=== PATIENT | male | born 1995 | race Caucasian/White ===

== ENCOUNTER 2020-08-09 15:10 | Emergency (ER) | payer OTHER, SELFPAY ==
--- NOTE | ~2020-08-09 | XR_ITS ---
EXAMINATION: XR knee LT min 4V DATE: 08/09/2020 15:47 INDICATION: Left knee pain. TECHNIQUE: 5 views of left knee were obtained. COMPARISON: None. FINDINGS: Bone alignment is normal. No fracture. There is mild osteoarthritis of medial and patellofe moral compartments. No knee joint effusion. IMPRESSION: 1. Mild left knee osteoarthritis. Reviewed, dictated and finalized at location A.
[2020-08-09 15:19] VITALS: BP 145/85; PULSE 81; RESP 14; TEMP 36.9; O2SAT 100
--- NOTE | 2020-08-09 16:02 | ED.LOWEXIN ---
HPI - Extremity Injury (Lower) General Chief Complaint: Extremity Injury, Lower Stated Complaint: left knee pain/trouble walking Time Seen by Provider: 08/09/20 15:46 Source: patient and RN notes reviewed Mode of arrival: ambulatory Limitations: no limitations History of Present Illness HPI Narrative: Patient presents today with a history of intermittent shooting and aching pains in his left knee x2 years s/p left patellar fracture. Occasionally this pain radiates to his hip. He has been taking ibuprofen and naproxen. He did not follow-up with orthopedics after his patella healed. He is recently seen his PCP, who he believes is not doing much to help with his pain. He sought treatment today wondering if his patella healed improperly and would like an x-ray. Currently rates pain 06/24. 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 MD complaint: knee injury Related Data Home Medications Medication Instructions Recorded Confirmed bupropion HCl 150 mg PO QAM 08/09/20 08/09/20 lamotrigine 100 mg PO BID 08/09/20 08/09/20 risperidone 2 mg PO DAILY 08/09/20 08/09/20 trazodone 300 mg PO HS 08/09/20 08/09/20 Allergies Allergy/AdvReac Type Severity Reaction Status Date / Time No Known Allergies Allergy Verified 08/09/20 15:41 Review of Systems Review of Systems: Narrative: CONSTITUTIONAL: Denies body aches, fever, chills, or sweats. EYES: Denies visual changes, redness, or discharge. ENT: Denies rhinorrhea, congestion, sore throat, or otalgia. CARDIOVASCULAR: Denies chest pain, palpitations, or edema. RESPIRATORY: Denies cough or dyspnea. GASTROINTESTINAL: Denies abdominal pain, nausea, vomiting, or diarrhea. GENITOURINARY: Denies dysuria or hematuria. SKIN: Denies rash, itching, or wounds. MUSCULOSKELETAL: Denies back pain, or myalgia. + Left knee pain NEUROLOGIC: Denies headache, numbness, tingling, or weakness. PSYCH: Denies depression or anxiety. [facility] Past Medical History Medical History (Updated 08/10/20 @ 00:00 by Eze Lopez) Anxiety Social History Social History (Updated 10/17/19 @ 15:42 by Cherrie Nice NP) Smoking packs per day: 0.5 Smoking cigarettes per day: 10.0 Years smoked: 9 Smoking pack-years: 4.50 Smoking status: Current every day smoker Gender identity (if verbalized by the patient): Male Comments At time of signature, I have reviewed and agree with nursing past medical, surgical, social and family history unless otherwise noted. Please see nursing chart for further information. There is no relevant family history pertinent to the presenting complaint Exam Narrative: Exam Narrative: GENERAL: Well-appearing, well-nourished, and in no acute distress. HEAD: Normocephalic, atraumatic. EYES: EOMI. No redness or drainage. Conjunctivae normal. ENT: Mucous membranes pink and moist. NECK: Normal AROM. CHEST: No respiratory distress. EXTREMITIES: Left knee: No edema, ecchymosis, erythema, or color change. No effusion noted. Tenderness to the lateral joint line. No abnormal movement of the tenderness. No bony tenderness of the patella. No tenderness of the patellar tendon. Full range of motion of the knee. Distal sensation intact. Capillary refill normal. Pedal pulse normal. SKIN: Warm, dry, no rash. Capillary refill normal. Normal skin turgor. NEURO: No focal deficits. Alert and oriented x3. Gait steady. PSYCH: Normal affect. No signs of depression or anxiety. Course Course Emergency Course: After discussing xray results and plan for ortho follow up with patient he requested pain medication prescription. Discussed with patient that I don't typically prescribe narcotic pain medication for patients with chronic pain and that he needs to take OTC medications and see he PCP or ortho for further treatment. He became angry at this point, states, I don't want narcotics. I ain't a druggy , then proceeds to yell and curse at me for
== END 2020-08-09 16:09 | disposition home or self-care (01) ==
PROVIDERS: Emergency Provider Nurse Practitioner
DX: G89.29 Other chronic pain (principal); M25.562 Pain in left knee; F17.210 Nicotine dependence, cigarettes, uncomplicated; F41.9 Anxiety disorder, unspecified
CPT/HCPCS: 73564; 99212; G0463

== ENCOUNTER 2021-08-27 15:46 | Emergency (ER) | payer OTHER, SELFPAY ==
[2021-08-27 15:49] VITALS: BP 154/114; PULSE 100; RESP 24; TEMP 36.7; O2SAT 98
--- NOTE | 2021-08-27 15:56 | ED.DENTAL ---
HPI - Dental/Oral General Stated complaint: tooth pain History of Present Illness HPI Narrative: Patient is a 25-year-old male who presents complaining of right lower dental pain. Patient has moaning and answering few questions at this time. Patient is stating that he must have pain control or he will leave AMA. Patient reports sudden onset of right lower dental pain x2 hours. He reports taking 800 mg of ibuprofen prior to arrival. He reports sensitivity to cold and heat to right lower tooth. He denies all other complaints at this time. MD Complaint: tooth pain Related Data Home Medications Medication Instructions Recorded Confirmed bupropion HCl 150 mg PO QAM 08/09/20 08/27/21 lamotrigine 100 mg PO BID 08/09/20 08/27/21 risperidone 2 mg PO DAILY 08/09/20 08/27/21 buprenorphine [Sublocade] See Rx Instructions .ROUTE .COMPLEX 08/27/21 08/27/21 propranolol 08/27/21 08/27/21 trazodone 100 mg PO DAILY 08/27/21 08/27/21 Allergies Allergy/AdvReac Type Severity Reaction Status Date / Time No Known Allergies Allergy Verified 08/27/21 15:58 Review of Systems Review of Systems: CONSTITUTIONAL: Denies fever, chills, or sweats. EYES: Denies visual changes, redness, or discharge. ENT: Denies rhinorrhea, congestion, sore throat, or otalgia. Right lower dental pain CARDIOVASCULAR: Denies chest pain, palpitations, or edema. RESPIRATORY: Denies cough or dyspnea. GASTROINTESTINAL: Denies abdominal pain, nausea, vomiting, or diarrhea. GENITOURINARY: Denies dysuria or hematuria. SKIN: Denies rash or itching. MUSCULOSKELETAL: Denies back pain, joint pain, or myalgia. NEUROLOGIC: Denies headache, numbness, dizziness, or weakness. PSYCHIATRIC: Denies anxiety or depression. [facility] Past Medical History Medical History Anxiety Social History Social History Smoking packs per day: 0.5 Smoking cigarettes per day: 10.0 Years smoked: 9 Smoking pack-years: 4.50 Smoking status: Current every day smoker Gender identity (if verbalized by the patient): Male Comments At the time of signature, I have reviewed and agree with nursing past medical, surgical, social, and family history unless otherwise noted. Please see nursing chart for further information. There is no relevant family history pertinent to the presenting complaint. Exam Narrative: GENERAL: Well-appearing, well-nourished, and in no acute distress. HEAD: Normocephalic, atraumatic. EYES: EOMI. No redness or drainage. Conjunctiva are normal. ENT: Mucous membranes pink and moist. Multiple dental caries. CHEST: No respiratory distress. Clear to auscultation. HEART: Regular rate and rhythm. EXTREMITIES: Normal range of motion. No edema. SKIN: Warm, dry, no rash. NEURO: No focal deficits. Alert and oriented x3. Gait steady. PSYCH: Normal affect. No signs of depression or anxiety. MDM - Dental/Oral MDM Narrative Medical decision making narrative: Patient requesting pain management. Per chart patient has a history of narcotic abuse. Discussed with patient that antibiotics were the most effective in treating but dental pain and and he may take Tylenol or ibuprofen as needed. Differential Diagnosis Differential diagnosis: Likely dental caries, toothache, dental abscess and fracture of tooth Critical Care Time Critical Care Time Critical Care Time: No Discharge Plan Discharge Clinical Impression: Pain, dental Patient Disposition: Home, Self-Care Condition: Stable Instructions: Antibiotic Form Additional Instructions: Take antibiotics as directed. You may take Tylenol or ibuprofen for pain. Follow-up with your dentist on Sunday for further evaluation. Prescriptions: New amoxicillin-pot clavulanate 875-125 mg tablet 1 tablet PO Q12H 10 Days Qty: 20 RF: 0 ibuprofen 800 mg tablet 800 mg PO TID PRN (Reason: pain) Qty: 20 RF: 0
== END 2021-08-27 16:00 | disposition home or self-care (01) ==
PROVIDERS: Emergency Provider Nurse Practitioner
DX: K08.89 Other specified disorders of teeth and supporting structures (principal); F17.210 Nicotine dependence, cigarettes, uncomplicated; F41.9 Anxiety disorder, unspecified
CPT/HCPCS: 99213; G0463

== ENCOUNTER 2022-03-08 13:29 | Emergency (ER) | payer OTHER, SELFPAY ==
[2022-03-08 13:40] VITALS: BP 133/85; PULSE 74; RESP 16; TEMP 36.4; O2SAT 100
--- NOTE | 2022-03-08 14:34 | ED.DENTAL ---
HPI - Dental/Oral General Chief complaint: Dental/Oral Stated complaint: toothache Time Seen by Provider: 03/08/22 14:13 Source: patient Mode of arrival: ambulatory Limitations: no limitations History of Present Illness HPI Narrative: 26-year-old otherwise healthy here with complaints of dental pain for past 2 days. Since this morning. Pain has been quite intense. He states that his glands are swollen. Denies any fever or chills. He is scheduled to see a dentist in 2 days Location: Tooth # (29) Onset (ago): day(s) (2) Duration: constant Severity: moderate Relieving factors: nothing Exacerbating factors: nothing Context: history of dental caries Treatment prior to arrival: none Related Data Home Medications Medication Instructions Recorded Confirmed trazodone 100 mg tablet 100 mg PO DAILY 08/27/21 08/27/21 Allergies Allergy/AdvReac Type Severity Reaction Status Date / Time No Known Allergies Allergy Verified 03/08/22 13:37 Review of Systems Review of Systems: All systems reviewed & are unremarkable except as noted in HPI and below Constitutional: Constitutional: Reports no additional constitutional complaints Eyes: Eyes: Reports no additional eye complaints ENT: Reports as per HPI Cardiovascular: Cardiovascular: Reports no additional cardiovascular complaints Respiratory: Respiratory: Reports no additional respiratory complaints Gastrointestinal: Gastrointestinal: Reports no additional gastrointestinal complaints Musculoskeletal: Musculoskeletal: Reports no additional musculoskeletal complaints Integumentary/Breasts: Skin/Breast: Reports system reviewed and no additional complaints, except as docu Neurologic: Reports system reviewed and no additional complaints, except as documented PMFSH Past Medical History Medical History Anxiety Social History Social History Smoking packs per day: 0.5 Smoking cigarettes per day: 10.0 Years smoked: 9 Smoking pack-years: 4.50 Smoking status: Current every day smoker Gender identity (if verbalized by the patient): Male Exam Narrative: GENERAL: Well-appearing, well-nourished, and in no acute distress. HEAD: Normocephalic, atraumatic. EYES: PERRLA and EOMI. ENT: Nares clear, dental caries #29 mucous membranes moist. NECK: Supple. CHEST: Clear to auscultation. No respiratory distress. HEART: Regular rate and rhythm. No murmur heard. Normal peripheral pulses. EXTREMITIES: Normal range of motion. No edema. SKIN: Warm, dry, no rash. NEURO: No focal deficits. Alert and oriented x3. PSYCH: Normal mood and affect. Course Course Emergency Course: Inform patient to take antibiotic as prescribed, follow-up with dentist as scheduled Vital Signs Vital signs: Vital Signs Temperature 36.4 C L 03/08/22 13:40 Pulse Rate 74 03/08/22 13:40 Respiratory Rate 16 03/08/22 13:40 Blood Pressure 133/85 03/08/22 13:40 Pulse Oximetry 100 03/08/22 13:40 Oxygen Delivery Room Air 03/08/22 13:40 Temperature 36.4 C L 03/08/22 13:40 Pulse Rate 74 03/08/22 13:40 Respiratory Rate 16 03/08/22 13:40 Blood Pressure 133/85 03/08/22 13:40 Pulse Oximetry 100 03/08/22 13:40 Oxygen Delivery Room Air 03/08/22 13:40 Discharge Plan Discharge Clinical Impression: Dental caries Patient Disposition: Home, Self-Care Condition: Stable Instructions: Antibiotic Form, Toothache (ED) Additional Instructions: Take antibiotic as prescribed you are on Suboxone cannot give any narcotic. Can take Tylenol or ibuprofen for pain follow-up with your dentist Prescriptions: New amoxicillin 875 mg tablet 875 mg PO Q12H Qty: 20 0RF No Action trazodone 100 mg tablet 100 mg PO DAILY Follow-up/Referrals: PHYSICIAN NOT ON STAFF,NONSTAFF [Primary Care Provider] - Stand Alone Forms: Work/School Release I
== END 2022-03-08 14:54 | disposition home or self-care (01) ==
PROVIDERS: Emergency Provider Family Medicine
DX: K02.9 Dental caries, unspecified (principal); F41.9 Anxiety disorder, unspecified; F17.210 Nicotine dependence, cigarettes, uncomplicated
CPT/HCPCS: 99283

== ENCOUNTER 2022-12-21 16:45 | Emergency (ER) | payer OTHER, SELFPAY ==
--- NOTE | 2022-12-21 16:48 | ED.DENTAL ---
HPI - Dental/Oral General Chief complaint: Dental/Oral Stated complaint: Dental Pain Time Seen by Provider: 12/21/22 17:00 Source: patient Mode of arrival: ambulatory Limitations: no limitations History of Present Illness HPI Narrative: Levar is a 27-year-old male patient presenting to clinic today with complaints of dental pain x4 days. He reports he broke part of his right posterior molar and is having a lot of pain. Has been taking ibuprofen and Orajel for the pain in is not helping. Rates his pain 07/24 currently Related Data Home Medications Medication Instructions Recorded Confirmed trazodone 100 mg tablet 100 mg PO DAILY 08/27/21 08/27/21 fluvoxamine 100 mg tablet mg 12/21/22 olanzapine 20 mg tablet mg 12/21/22 Allergies Allergy/AdvReac Type Severity Reaction Status Date / Time No Known Allergies Allergy Verified 03/08/22 13:37 [facility] Past Medical History Medical History Anxiety Social History Social History Smoking packs per day: 0.5 Smoking cigarettes per day: 10.0 Years smoked: 9 Smoking pack-years: 4.50 Smoking status: Current every day smoker Living arrangements: with family Gender identity (if verbalized by the patient): Male Comments At the time of my signature, I reviewed and agree with the nursing past medical, surgical, social, and family history. There is no relevant family history pertinent to the patient complaint. Exam Narrative: General: Well-developed, well nourished, in no apparent distress Head: Normocephalic, atraumatic Eyes: Pupils equally round and reactive to light bilaterally, EOM intact, sclera and conjunctive clear, no discharge, lids normal Ears: TMs intact and clear, ear canals clear, no drainage, grossly hearing normal. Nose: Nares patent, no discharge, no inflammation, no sinus tenderness. Mouth: Oropharynx without lesions or masses, poor dentition, MMM. Fracture number 32 tooth with cavity Neck: Supple, trachea midline, no enlargement of anterior or posterior cervical nodes, no thyroid masses or goiter palpable. Cardio: Regular rate and rhythm, s1 and s2 normal, no murmur appreciated. Resp: Clear to auscultation bilaterally anteriorly and posteriorly, no rhonchi, rales, wheezing or rubs Course Course Emergency Course: Portions of this record may have been created with voice recognition software. Level of Care: Express Care Visit Vital Signs Vital signs: Vital Signs Temperature 36.9 C 12/21/22 16:53 Pulse Rate 90 12/21/22 16:53 Respiratory Rate 12 12/21/22 16:53 Blood Pressure 142/99 H 12/21/22 16:53 Pulse Oximetry 99 12/21/22 16:53 Oxygen Delivery Room Air 12/21/22 16:53 Temperature 36.9 C 12/21/22 16:55 Pulse Rate 90 12/21/22 16:55 Respiratory Rate 12 12/21/22 16:55 Blood Pressure 142/99 H 12/21/22 16:55 Pulse Oximetry 99 12/21/22 16:55 Oxygen Delivery Room Air 12/21/22 16:55 Vital signs reviewed Procedures Other Procedure Procedure 1: Other Procedure: Verbal consent obtained for right inferior alveolar block. Rest and benefits explained the patient voiced understanding. 5 mL 1% lidocaine with epi was instilled into the inferior alveolar block site and pain was controlled. No complications MDM - Dental/Oral MDM Narrative Medical decision making narrative: At the time of visit patient is resting comfortably on exam table. Inferior alveolar block was performed in the clinic instilling 5 mL of lidocaine with epi. Patient tolerated procedure well. Will send in prescription for amoxicillin and ibuprofen. Supportive measures were discussed with the patient he voiced understanding discharge instructions and agrees to treatment plan. Differential Diagnosis Differential diagnosis: Likely dental caries, toothache, dental abscess and fracture of tooth Discharge Pl
[2022-12-21 16:53] VITALS: BP 142/99; PULSE 90; RESP 12; TEMP 36.9; O2SAT 99
[2022-12-21 16:55] VITALS: BP 142/99; PULSE 90; RESP 12; TEMP 36.9; O2SAT 99
== END 2022-12-21 17:18 | disposition home or self-care (01) ==
PROVIDERS: Emergency Provider Nurse Practitioner Family
DX: K02.9 Dental caries, unspecified (principal); F17.210 Nicotine dependence, cigarettes, uncomplicated; F41.9 Anxiety disorder, unspecified
CPT/HCPCS: 64999; 99213; G0463